=== PATIENT | male | born 1940 ===

== ENCOUNTER 2024-08-19 12:48 | Observation (INO) ==
[2024-08-19] MEDS ORDERED: ceFAZolin 2 GM PREMIX 2 GM/50 ML BAG ONE (13:31)
[2024-08-19 13:41] LABS: Rapid COVID-19 Molecular Undetected (Undetected)
[2024-08-19] MEDS ORDERED: Metoclopramide 5 MG/ML VIAL (10 mg) IV PRN (14:25)
[2024-08-19] MEDS ORDERED: Naloxone 0.4 mg VIAL 0.4 mg/ml 1 ml VIAL IV PRN (14:25)
[2024-08-19] MEDS ORDERED: fentaNYL 100 mcg/2 ml 50 MCG/ML VIAL IV PRN (14:25)
[2024-08-19] MEDS ORDERED: Ondansetron 4 mg VIAL 2 MG/ML 2 ml VIAL IV PRN ×2 (14:25→15:37)
[2024-08-19] MEDS: Lactated Ringers 1000 ml BAG 1,000 ML IV SCH ×2 (14:29→21:30)
[2024-08-19] MEDS ORDERED: NS 0.45% 1000 ml BAG 1,000 ML IV SCH (15:00)
[2024-08-19] MEDS ORDERED: fentaNYL 100 mcg/2 ml 50 MCG/ML VIAL ONE (15:30)
[2024-08-19] MEDS ORDERED: Propofol 10 MG/ML 20 ML BTL ONE (15:30)
[2024-08-19] MEDS ORDERED: Midazolam 2 mg/2 ml VIAL 1 mg/ml 2 ml VIAL (2 mg) ONE (15:32)
[2024-08-19] MEDS ORDERED: ROPIVACAINE 5 MG/ML 30 ML BTL (0.5%) ONE ×3 (15:32→17:31)
[2024-08-19] MEDS ORDERED: Dexamethasone IV 4 MG/ML VIAL 1 ml VIAL ONE ×2 (15:32→16:16)
[2024-08-19] MEDS ORDERED: Calcium Carb (TUMS) 500 mg CHEW TAB PO PRN (15:37)
[2024-08-19] MEDS ORDERED: Ondansetron ODT 4 mg TAB 4 MG TAB PO PRN (15:37)
[2024-08-19] MEDS ORDERED: Morphine 2 MG/ML SYRINGE IV PRN (15:37)
[2024-08-19] MEDS ORDERED: Lactulose 30 ml UDC PO PRN (15:37)
[2024-08-19] MEDS ORDERED: Magnesium Hydroxide LIQ 30 ML UDC PO PRN (15:37)
[2024-08-19] MEDS ORDERED: Lidocaine 2% PF 5 ML VIAL ONE (16:01)
[2024-08-19] MEDS ORDERED: Ondansetron 4 mg VIAL 2 MG/ML 2 ml VIAL ONE (16:16)
[2024-08-19] MEDS ORDERED: HYDROmorphone 0.5 MG/0.5 ML SYRINGE ONE (16:59)
[2024-08-19] MEDS: Magnesium Hydroxide LIQ 30 ML UDC PO SCH (22:52)
[2024-08-20] MEDS: ceFAZolin 2 GM PREMIX 2 GM/50 ML BAG IV SCH (00:34)
[2024-08-20 06:38] LABS: Hematocrit 28.9 % (38-53); Hemoglobin 9.9 g/dL (13.2-16.3); Mean Platelet Volume 7.6 fL (7.5-11.2); Platelet Count 137 10^3/uL (150-450)
[2024-08-20 06:56] LABS: Calcium 8.5 mg/dL (8.6-10.3); Creatinine, Serum 1.66 mg/dL (0.67-1.17); Potassium 5.5 mmol/L (3.5-5.0); eGFR CKD-EPI 40.9 (>60)
[2024-08-20] MEDS: Vitamin THERAPEUTIC TAB PO SCH (08:46)
[2024-08-20] MEDS: Buffered Lidocaine 1% SYRIN 1 ml INTRADERM ONE (09:46)
[2024-08-20] MEDS: Acetaminophen IV 1 GM/100ML 1,000 MG/100 ML BAG IV ONE (09:46)
[2024-08-20] MEDS: SODIUM ZIRCONIUM CYCLOSILICATE 5 GM PACKET PO ONE (11:41)
[2024-08-20 15:11] LABS: Anion Gap 14 mmol/L (2-16); Blood Urea Nitrogen 36 mg/dL (6-24); CO2 Carbon Dioxide 20 mmol/L (22-32); Calcium 8.4 mg/dL (8.6-10.3); Chloride 100 mmol/L (101-111); Creatinine, Serum 1.83 mg/dL (0.67-1.17); Glucose 241 mg/dL (70-100); Sodium 134 mmol/L (135-145); eGFR CKD-EPI 36.4 (>60)
[2024-08-20] MEDS: Dextrose 50% Syringe 50 ml 25 GM/50 ML SYRINGE IV PUSH ONE (17:58)
[2024-08-20] MEDS: SODIUM ZIRCONIUM CYCLOSILICATE 10 GM PACKET PO ONE (18:39)
[2024-08-20] MEDS: Benzocaine/Menthol LOZ PO PRN (20:58)
[2024-08-20 22:44] LABS: Calcium 8.3 mg/dL (8.6-10.3); Creatinine, Serum 1.69 mg/dL (0.67-1.17)
[2024-08-21 06:31] LABS: Hemoglobin 8.8 g/dL (13.2-16.3); Mean Platelet Volume 7.6 fL (7.5-11.2); Platelet Count 152 10^3/uL (150-450)
[2024-08-21 07:17] LABS: Calcium 8.4 mg/dL (8.6-10.3); Creatinine, Serum 1.6 mg/dL (0.67-1.17); eGFR CKD-EPI 42.8 (>60)
== END 2024-08-21 12:10 | disposition home or self-care (01) ==
LOC: OR 12:48 → SSU 12:48 → SUATTDRO 15:37
PROVIDERS: ADMIT Orthopaedic Surgery Adult Reconstructive Orthopaedic Surgery; ATTEND Hospitalist